=== PATIENT | female | born 1980 | race Caucasian/White ===

== ENCOUNTER 2023-02-05 14:19 | Emergency (ER) | payer OTHER, SELFPAY ==
--- NOTE | 2023-02-05 14:25 | ED.URI ---
HPI - URI/Sore Throat General Chief Complaint: Upper Respiratory Infection Stated Complaint: Cough, pain in ears, sinus Time Seen by Provider: 02/05/23 14:38 Source: patient and RN notes reviewed Mode of arrival: ambulatory Limitations: no limitations History of Present Illness HPI Narrative: 42-year-old female presents with concern for one-week history of cough, productive cough. She reports sinus pressure and left ear pain. She reports history of ear problems. She denies taking any medications for her symptoms MD elicited complaint: cough and sore throat Related Data Home Medications Medication Instructions Recorded Confirmed aspirin 81 mg tablet,delayed mg 02/05/23 release carvedilol 25 mg tablet mg 02/05/23 ergocalciferol (vitamin D2) 1,250 02/05/23 mcg (50,000 unit) capsule hydrochlorothiazide 12.5 mg tablet mg 02/05/23 losartan 02/05/23 magnesium oxide 400 mg (241.3 mg mg 02/05/23 magnesium) tablet potassium chloride 10 mEq meq PO 02/05/23 tablet,extended release pravastatin 80 mg tablet mg 02/05/23 Allergies Allergy/AdvReac Type Severity Reaction Status Date / Time No Known Allergies Allergy Unverified 02/05/23 14:25 Review of Systems Review of Systems: CONSTITUTIONAL: Denies malaise, chills, sweats, or fever. EYES: Denies visual changes, redness, or discharge. ENT: Reports rhinorrhea, congestion, sinus pain, otalgia CARDIOVASCULAR: Denies chest pain, palpitations, or edema. RESPIRATORY: Reports cough. Denies dyspnea. GASTROINTESTINAL: Denies abdominal pain, nausea, vomiting, diarrhea SKIN: Denies rash or itching. MUSCULOSKELETAL: Denies myalgia. NEUROLOGIC: Denies headache. All systems reviewed & are unremarkable except as noted in HPI and below [facility] Family History Family History (Updated 01/06/17 @ 23:56 by DOCTOR UNKNOWN) Mother Hypertension Family history of malignant neoplasm of thyroid, Onset Age: 78 Patient's mother is Grandparent Family history of coronary artery disease, Onset Age: 80 Social History Social History Smoking status: Never smoker Second hand tobacco smoke exposure: No Smoking end date: 10/02/11 Alcohol intake: current Comments At time of signature, agree with nursing past medical, surgical, social and family history. There is no relevant family history pertinent to the presenting complaint Exam Narrative: GENERAL: Well-appearing, well-nourished, and in no acute distress. HEAD: Normocephalic EYES: PERRLA, conjunctivae clear ENT: Nares clear, turbinates edematous and erythematous, clear discharge. Mucous membranes moist. TM erythematous and bulging bilaterally; no tragal tenderness. Oropharynx not erythematous without lesions. Tonsils not enlarged and without exudate, no drooling, no hoarseness, no trismus, uvula midline. NECK: Supple. No lymphadenopathy CHEST: Clear to auscultation, breath sounds equal. No wheezing, rhonchi, rales, or stridor. No respiratory distress, speaks in full sentences. HEART: Regular rate and rhythm. No murmur heard. SKIN: Warm, dry, no rash. NEURO: Alert and oriented x3. PSYCH: Normal mood and affect Course Course Emergency Course: Patient is aware of diagnosis, understands and agrees to treatment plan. Anticipatory guidance given. Patient agrees to follow-up as directed and is aware of reasons to seek care at the emergency department. Portions of this record may have been created with voice recognition software Level of Care: Express Care Visit Vital Signs Vital signs: Vital Signs Temperature 95.3 F L 02/05/23 14:34 Pulse Rate 69 02/05/23 14:34 Respiratory Rate 16 02/05/23 14:34 Blood Pressure 148/89 H 02/05/23 14:34 Pulse Oximetry 98 02/05/23 14:34 Oxygen Delivery Room Air 02/05/23 14:34 Temperature 95.3 F L 02/05/23 14:45 Pulse Rate 69 02/05/23 14:45 Respiratory Rate 16 02/05/23 14:45 Blood Pressure 148/89 H
[2023-02-05 14:34] VITALS: BP 148/89; PULSE 69; RESP 16; TEMP 35.2; O2SAT 98
[2023-02-05 14:45] VITALS: BP 148/89; PULSE 69; RESP 16; TEMP 35.2; O2SAT 98
== END 2023-02-05 14:51 | disposition home or self-care (01) ==
PROVIDERS: Emergency Provider Nurse Practitioner
DX: H66.93 Otitis media, unspecified, bilateral (principal); Z87.891 Personal history of nicotine dependence; Z79.82 Long term (current) use of aspirin
CPT/HCPCS: 99213; G0463